=== PATIENT | male | born 1960 | race Two or more races ===

== ENCOUNTER 2017-02-01 14:29 | Emergency (ER) | payer SELFPAY ==
[~2017-02-01] VITALS: Ht 172.7 cm; Wt 63.5 kg
[2017-02-01 15:12] LABS: Basophils # (auto) 0 uL; Basophils % (auto) 0.3 % (0.0-2.0); CONDITION Y; Eosinophils # (auto) 0.1 uL; Eosinophils % (auto) 0.5 % (0.0-7.0); Hematocrit 31.7 % (41.0-53.0); Hemoglobin 10.7 g/dL (13.5-17.5); Lymphocytes # (auto) 1.1 uL; Lymphocytes % (auto) 9.8 % (10.0-50.0); Mean Corpuscular Hgb Conc. 33.9 g/dL (32.0-36.0); Mean Corpuscular Volume 94.3 fL (80.0-100.0); Mean Platelet Volume 7.9 fL (7.4-10.4); Monocytes # (auto) 0.9 uL; Monocytes % (auto) 8.6 % (0.0-12.0); Neutrophils # (auto) 8.8 uL; Neutrophils % (auto) 80.8 % (37.0-80.0); Platelet Count (auto) 371 10^3/uL (140-450); Red Cell Distribution Width 13.8 % (11.6-16.0); White Blood Cell 10.9 10^3/uL (4.4-10.8)
[2017-02-01 15:44] LABS: Albumin 2.9 g/dL (3.4-5.0); Anion Gap 8 (5-15); Blood Urea Nitrogen 15 mg/dL (7-18); Calcium 7.7 mg/dL (8.5-10.1); Carbon Dioxide 26 mmol/L (21-32); Chloride 105 mmol/L (98-107); Glucose 214 mg/dL (74-106); Potassium 3.8 mmol/L (3.5-5.1); Sodium 139 mmol/L (136-145)
[2017-02-01 15:47] LABS: Aspartate Aminotransferase 67 U/L (15-37); BUN/Creatinine Ratio 17.4; GFR African American 117 mL/min; GFR Non-African American 97 mL/min
[2017-02-01 15:50] LABS: Alkaline Phosphatase 63 U/L (45-117); Bilirubin, Total 0.6 mg/dL (0.2-1.0); Total Protein 7.1 g/dL (6.4-8.2)
[2017-02-01 17:00] VITALS: BP 133/87
== END 2017-02-01 17:40 | disposition home or self-care (01) ==
LOC: EDBD 14:29 → ER 14:35
DX: S09.90XA Unspecified injury of head, initial encounter (principal); E11.9 Type 2 diabetes mellitus without complications; V47.5XXA Car driver injured in collision with fixed or stationary object in traffic accident, initial encounter; Y93.89 Activity, other specified; Y99.8 Other external cause status; Y92.481 Parking lot as the place of occurrence of the external cause
CPT/HCPCS: 36415; 70450; 80053; 80320; 85025

== ENCOUNTER 2017-02-07 11:31 | Emergency (ER) | payer SELFPAY ==
[~2017-02-07] VITALS: Ht 170.2 cm; Wt 54.4 kg
[2017-02-07 12:15] LABS: Basophils # (auto) 0 uL; Basophils % (auto) 0.2 % (0.0-2.0); CONDITION Y; Eosinophils # (auto) 0.1 uL; Eosinophils % (auto) 0.4 % (0.0-7.0); Hematocrit 34.7 % (41.0-53.0); Hemoglobin 11.5 g/dL (13.5-17.5); Lymphocytes # (auto) 1.1 uL; Lymphocytes % (auto) 6.1 % (10.0-50.0); Mean Corpuscular Hemoglobin 31.2 pg (28.0-32.0); Mean Corpuscular Hgb Conc. 33.3 g/dL (32.0-36.0); Mean Corpuscular Volume 93.8 fL (80.0-100.0); Mean Platelet Volume 7.7 fL (7.4-10.4); Monocytes # (auto) 1.4 uL; Neutrophils % (auto) 85.3 % (37.0-80.0); Platelet Count (auto) 458 10^3/uL (140-450); Red Cell Distribution Width 14.4 % (11.6-16.0); White Blood Cell 17.6 10^3/uL (4.4-10.8)
[2017-02-07 12:43] LABS: Albumin 2.4 g/dL (3.4-5.0); BUN/Creatinine Ratio 19.1; Bilirubin, Total 0.8 mg/dL (0.2-1.0); Calcium 8.5 mg/dL (8.5-10.1); Potassium 4.2 mmol/L (3.5-5.1); Total Protein 7.9 g/dL (6.4-8.2)
[2017-02-07] MEDS ORDERED: SODIUM CHLORIDE 0.9% 1,000 ML IV ONE (12:57)
[2017-02-07] MEDS ORDERED: CLINDAMYCIN 600MG IV 50 ML IV ONE (13:00)
[2017-02-07 16:07] VITALS: BP 153/89
== END 2017-02-07 16:19 | disposition short-term general hospital (02) ==
LOC: ER 11:33
DX: M86.171 Other acute osteomyelitis, right ankle and foot (principal); E11.9 Type 2 diabetes mellitus without complications; F17.210 Nicotine dependence, cigarettes, uncomplicated
CPT/HCPCS: 36415; 73630; 80053; 83605; 83735; 85025; 85652; 87040; 87077; 87186; 87205; 94761; 96365; 96366; 99285; J3490; J7030

== ENCOUNTER 2017-02-13 20:09 | Emergency (ER) | payer SELFPAY ==
[~2017-02-13] VITALS: Ht 172.7 cm; Wt 60.8 kg
[2017-02-13 20:57] LABS: Basophils # (auto) 0.1 uL; Basophils % (auto) 1.1 % (0.0-2.0); CONDITION Y; Eosinophils # (auto) 0.2 uL; Eosinophils % (auto) 2.6 % (0.0-7.0); Hematocrit 34.5 % (41.0-53.0); Hemoglobin 11.2 g/dL (13.5-17.5); Lymphocytes # (auto) 1.8 uL; Lymphocytes % (auto) 21.8 % (10.0-50.0); Mean Corpuscular Hemoglobin 30.5 pg (28.0-32.0); Mean Corpuscular Hgb Conc. 32.4 g/dL (32.0-36.0); Mean Corpuscular Volume 94.3 fL (80.0-100.0); Mean Platelet Volume 7.4 fL (7.4-10.4); Monocytes # (auto) 0.7 uL; Monocytes % (auto) 8.7 % (0.0-12.0); Neutrophils # (auto) 5.3 uL; Neutrophils % (auto) 65.8 % (37.0-80.0); Platelet Count (auto) 578 10^3/uL (140-450); Red Cell Distribution Width 14.6 % (11.6-16.0); White Blood Cell 8.1 10^3/uL (4.4-10.8)
[2017-02-13 21:21] LABS: INR 0.95 (0.9-1.15); Partial Thromboplastin Time 26.8 sec (22.64-33.71); Prothrombin Time 10.3 sec (9.37-12.3)
[2017-02-13 21:44] LABS: Albumin 2.7 g/dL (3.4-5.0); BUN/Creatinine Ratio 17.9; Bilirubin, Total 0.2 mg/dL (0.2-1.0); Calcium 8.7 mg/dL (8.5-10.1); Potassium 4.4 mmol/L (3.5-5.1); Total Protein 7.9 g/dL (6.4-8.2)
[2017-02-14 04:20] VITALS: BP 180/95
== END 2017-02-14 04:47 | disposition home or self-care (01) ==
LOC: ER 20:09
DX: M96.842 Postprocedural seroma of a musculoskeletal structure following a musculoskeletal system procedure (principal); E11.9 Type 2 diabetes mellitus without complications; F17.210 Nicotine dependence, cigarettes, uncomplicated; Z89.421 Acquired absence of other right toe(s)
CPT/HCPCS: 36415; 80053; 85025; 85610; 85730

== ENCOUNTER 2017-02-15 00:59 | Emergency (ER) | payer SELFPAY ==
[~2017-02-15] VITALS: Ht 167.6 cm; Wt 68.0 kg
[2017-02-15 01:17] VITALS: BP 188/94
== END 2017-02-15 02:06 | disposition left against medical advice (07) ==
LOC: EDBD 00:59 → ER 01:05
DX: M79.671 Pain in right foot (principal); Z53.21 Procedure and treatment not carried out due to patient leaving prior to being seen by health care provider

== ENCOUNTER 2017-02-21 16:21 | Emergency (ER) | payer SELFPAY ==
[~2017-02-21] VITALS: Ht 175.3 cm; Wt 63.5 kg
[2017-02-21 16:30] VITALS: BP 157/82
== END 2017-02-22 01:41 | disposition left against medical advice (07) ==
LOC: EDBD 16:21 → ER 16:32
DX: M79.671 Pain in right foot (principal); Z53.21 Procedure and treatment not carried out due to patient leaving prior to being seen by health care provider

== ENCOUNTER 2017-04-24 15:05 | Inpatient (IN) | payer SELFPAY ==
[~2017-04-24] VITALS: Ht 177.8 cm; Wt 62.3 kg
[2017-04-24 23:38] LABS: Basophils # (auto) 0 uL; Basophils % (auto) 0.6 % (0.0-2.0); Eosinophils # (auto) 0.5 uL; Eosinophils % (auto) 5.9 % (0.0-7.0); Hematocrit 30.9 % (41.0-53.0); Hemoglobin 10.2 g/dL (13.5-17.5); Lymphocytes # (auto) 2.2 uL; Lymphocytes % (auto) 27.7 % (10.0-50.0); Mean Corpuscular Hemoglobin 31.6 pg (28.0-32.0); Mean Corpuscular Hgb Conc. 33.1 g/dL (32.0-36.0); Mean Corpuscular Volume 95.3 fL (80.0-100.0); Mean Platelet Volume 7.8 fL (6.9-10.8); Monocytes # (auto) 0.8 uL; Neutrophils # (auto) 4.5 uL; Neutrophils % (auto) 55.8 % (37.0-80.0); Nucleated Red Blood Cells % 0.1 %; Platelet Count (auto) 262 10^3/uL (140-450); Red Cell Distribution Width 18.2 % (11.8-14.3); White Blood Cell 8.1 10^3/uL (4.4-10.8)
[2017-04-24 23:56] LABS: Albumin 3.2 g/dL (3.4-5.0); Calcium 8.1 mg/dL (8.5-10.1); Potassium 4.5 mmol/L (3.5-5.1)
[2017-04-25] LABS: BUN/Creatinine Ratio 27.3; Bilirubin, Total 0.2 mg/dL (0.2-1.0); Total Protein 6.9 g/dL (6.4-8.2)
[2017-04-25] MEDS ORDERED: cefTRIAXone 1GM/50ML D5W 50 ML IV ONE (05:45)
[2017-04-25] MEDS ORDERED: ONDANSETRON HCL 4 MG/2 ML VIAL IV PRN (06:30)
[2017-04-25] MEDS ORDERED: HYDROcodone-ACET 5/325MG TAB PO PRN (06:30)
[2017-04-25] MEDS ORDERED: DEXTROSE (50%) 50ML SYRG IV PRN (06:30)
[2017-04-25] MEDS ORDERED: ACETAMINOPHEN 325 MG TAB PO PRN (06:30)
[2017-04-25] MEDS ORDERED: cloNIDine HCL 0.1 MG TAB PO PRN (06:30)
[2017-04-25] MEDS ORDERED: TEMAZEPAM 15 MG CAP PO PRN (06:30)
[2017-04-25 08:46] VITALS: BP 167/97
[2017-04-25 09:30] VITALS: BP 167/97
[2017-04-25] MEDS: amLODIPine BESYLATE 5 MG TAB PO SCH (09:51)
[2017-04-25] MEDS: FAMOTIDINE 20 MG TAB PO SCH ×2 (09:51→22:09)
[2017-04-25] MEDS: ENOXAPARIN SOD 40 MG/0.4 ML SYRINGE SC SCH (09:52)
[2017-04-25] MEDS: ACCU-CHEK COMFORT CURVE STRIP VI SCH ×2 (11:46→17:58)
[2017-04-25] MEDS: InsuLIN REG 1unit/0.01ml Soln (100units/ml) SC SCH ×2 (11:47→17:58)
[2017-04-25 12:30] VITALS: BP 111/72
[2017-04-25] MEDS: CLINDAMYCIN 600MG IV 50 ML IV SCH ×2 (13:42→22:09)
[2017-04-25 13:46] LABS: INR 0.97 (0.9-1.15); Prothrombin Time 10.6 sec (9.37-12.3)
[2017-04-25 16:34] VITALS: BP 155/82
[2017-04-25 22:00] VITALS: BP 154/80
[2017-04-26] MEDS: InsuLIN REG 1unit/0.01ml Soln (100units/ml) SC SCH ×5 (00:24→23:27)
[2017-04-26] MEDS: ACCU-CHEK COMFORT CURVE STRIP VI SCH ×5 (00:24→23:27)
[2017-04-26 05:00] VITALS: BP 159/92
[2017-04-26] MEDS: CLINDAMYCIN 600MG IV 50 ML IV SCH ×3 (06:20→22:11)
[2017-04-26 09:21] VITALS: BP 136/84
[2017-04-26] MEDS: ENOXAPARIN SOD 40 MG/0.4 ML SYRINGE SC SCH (10:19)
[2017-04-26] MEDS: FAMOTIDINE 20 MG TAB PO SCH ×2 (10:19→22:12)
[2017-04-26] MEDS: amLODIPine BESYLATE 5 MG TAB PO SCH (10:21)
[2017-04-26] MEDS: metFORMIN HYDROCHLORIDE 500 MG TAB PO SCH (10:21)
[2017-04-26 16:36] VITALS: BP 129/84
[2017-04-26 22:13] VITALS: BP 157/77
[2017-04-27 05:45] VITALS: BP 136/73
[2017-04-27] MEDS: InsuLIN REG 1unit/0.01ml Soln (100units/ml) SC SCH ×2 (06:00→12:00)
[2017-04-27] MEDS: ACCU-CHEK COMFORT CURVE STRIP VI SCH ×2 (06:00→12:17)
[2017-04-27] MEDS: CLINDAMYCIN 600MG IV 50 ML IV SCH ×2 (06:42→14:00)
[2017-04-27 08:00] VITALS: BP 156/83
[2017-04-27 09:00] VITALS: BP_SYST 108; BP_SYST 156; BP_DIAS 77; BP_DIAS 83
[2017-04-27] MEDS: ENOXAPARIN SOD 40 MG/0.4 ML SYRINGE SC SCH (12:16)
[2017-04-27] MEDS: metFORMIN HYDROCHLORIDE 500 MG TAB PO SCH (12:16)
[2017-04-27] MEDS: amLODIPine BESYLATE 5 MG TAB PO SCH (12:16)
[2017-04-27] MEDS: FAMOTIDINE 20 MG TAB PO SCH (12:16)
[2017-04-27 13:00] VITALS: BP 120/66
[2017-04-27] MEDS ORDERED: MULTIPLE VITAMIN TAB PO SCH (15:45)
[2017-04-27] MEDS ORDERED: Boost Glucose Control 8 Ounces PO SCH (18:00)
[2017-04-27] MEDS ORDERED: ASCORBIC ACID 500 MG TAB PO SCH (22:00)
== END 2017-04-27 16:20 | disposition left against medical advice (07) | DRG 638 ==
LOC: ER 15:05 → WEST WING 15:06
PROVIDERS: ADMIT Nurse Practitioner; ATTEND Internal Medicine
DX: E11.69 Type 2 diabetes mellitus with other specified complication (principal); L03.115 Cellulitis of right lower limb; M86.8X7 Other osteomyelitis, ankle and foot; I10 Essential (primary) hypertension; F17.210 Nicotine dependence, cigarettes, uncomplicated; Z53.21 Procedure and treatment not carried out due to patient leaving prior to being seen by health care provider; Z89.421 Acquired absence of other right toe(s)
CPT/HCPCS: 36415; 73630; 73700; 73718; 80053; 82962; 83036; 85025; 85610; 85652; 85730; 86141; 87081; 93925; 96372; J0696; J1815; J3490

== ENCOUNTER 2017-05-04 10:30 | Emergency (ER) | payer SELFPAY ==
[~2017-05-04] VITALS: Ht 165.1 cm; Wt 63.0 kg
[2017-05-04 12:41] VITALS: BP 150/89
== END 2017-05-04 14:26 | disposition left against medical advice (07) ==
LOC: ER 10:30
DX: M79.89 Other specified soft tissue disorders (principal); Z53.21 Procedure and treatment not carried out due to patient leaving prior to being seen by health care provider